=== PATIENT | male | born 1995 | race Two or more races ===

== ENCOUNTER 2024-04-26 17:07 | Emergency (ER) | payer MEDICAID ==
[~2024-04-26] VITALS: Ht 170.2 cm; Wt 74.8 kg
[2024-04-26 17:15] VITALS: BP 127/82; TEMP 98.3
[2024-04-26] MEDS ORDERED: PREG300C PO (17:38)
[2024-04-26 17:46] VITALS: O2SAT 99
== END 2024-04-26 17:46 | disposition home or self-care (01) ==
LOC: ER 17:11
DX: M79.2 Neuralgia and neuritis, unspecified (principal); G89.29 Other chronic pain; Z76.0 Encounter for issue of repeat prescription; Z79.899 Other long term (current) drug therapy